=== PATIENT | female | born 1990 | race Two or more races ===

== ENCOUNTER 2021-06-21 11:18 | Emergency (ER) | payer OTHER ==
[~2021-06-21] VITALS: Ht 162.6 cm; Wt 72.6 kg
== END 2021-06-21 14:00 | disposition home or self-care (01) ==
LOC: ER 11:18
DX: R42 Dizziness and giddiness (principal)

== ENCOUNTER 2023-03-10 07:15 | Inpatient (IN) | payer OTHER ==
[~2023-03-10] VITALS: Ht 162.6 cm; Wt 72.6 kg
[2023-03-10] MEDS ORDERED: SERTRALINE20 MG/1 ML PO (08:45)
[2023-03-10] MEDS ORDERED: TRAZO PO (08:46)
[2023-03-10 09:10] LABS: PH,URINE 7.5 (5.0-8.0); URINE APPEARANCE Clear; URINE BILIRRUBIN Negative (NEGATIVE); URINE BLOOD Negative; URINE COLOR Yellow; URINE GLUCOSE Negative (NEGATIVE); URINE LEUKOCYTE Negative; URINE NITRATE Negative; URINE PROTEIN Negative (NEGATIVE)
[2023-03-10 09:14] LABS: URINE BACTERIA 32.7 uL (0.0-1933); URINE EPITHELIAL CELLS 11.4 uL (0.0-38.8); URINE RBC 9.1 uL (0.0-20.8)
[2023-03-10 09:18] LABS: HEMATOCRIT 37.1 % (36.0-45.00); HEMOGLOBIN 12.5 g/dL (12.0-15.00); MEAN CELL VOLUME 91.9 fL (80.00-100.00); MEAN CORPUSCULAR HEMOGLOBIN 31.1 pg (27.00-32.0); MEAN CORPUSCULAR HGB CONC 33.8 g/dl (32.0-36.0); PLATELET COUNT 261 K/uL (150-450); RED BLOOD COUNT 4.03 M/uL (4.00-6.00); RED CELL DISTRIBUTION WIDTH 12.8 % (11.5-14.5)
[2023-03-10 09:37] LABS: INR 0.98; PARTIAL THROMBOPLASTIN TIME 26.8 SECONDS (22.0-34.0); PROTHROMBIN TIME 10.3 SECONDS (9.0-11.5)
[2023-03-10 09:47] LABS: URINE WBC 1.5 uL (0.0-23.2)
[2023-03-10 09:53] LABS: ALBUMIN 3.8 gm/dL (3.4-5.0); BILIRUBIN TOTAL 0.51 mg/dL (0.3-1.2); CALCIUM 9.1 mg/dL (8.5-10.1); CREATININE SERUM 0.62 mg/dL (0.55-1.02); GFR 112.27; GLOBULINA 3.5 G/DL (2.4-3.5); POTASSIUM 3.77 mEq/L (3.5-5.1); TOTAL PROTEIN 7.3 gm/dL (6.4-8.2)
== END 2023-03-17 09:55 | disposition home or self-care (01) | DRG 743 ==
LOC: O/R 03-15 04:53 → OB/GYN 03-15 04:53 → SURG 03-15 07:15 → OB/GYN 03-15 12:01
PROVIDERS: ADMIT Obstetrics & Gynecology; ATTEND Obstetrics & Gynecology
PROC: 0UB00ZZ Excision of Right Ovary, Open Approach (ICD-10-PCS; 2023-03-15)
PROC: 0UB90ZZ Excision of Uterus, Open Approach (ICD-10-PCS; principal; 2023-03-15 09:45)
DX: D25.9 Leiomyoma of uterus, unspecified (principal); N83.01 Follicular cyst of right ovary; Z20.822 Contact with and (suspected) exposure to COVID-19